=== PATIENT | male | born 1970 | race Caucasian/White ===

== ENCOUNTER 2021-01-25 14:58 | Emergency (ER) | payer BC ==
[2021-01-25] MEDS ORDERED: PEPCID20 MG PO (19:00)
== END 2021-01-25 19:00 | disposition home or self-care (01) ==
LOC: ER1 14:58
DX: K40.20 Bilateral inguinal hernia, without obstruction or gangrene, not specified as recurrent (principal); I10 Essential (primary) hypertension
CPT/HCPCS: 99283